=== PATIENT | male | born 1950 | race Two or more races ===

== ENCOUNTER → 2016-05-13 | Outpatient (CLI) | payer MEDICARE ==
--- NOTE | 2016-05-13 18:19 | MR ---
EXAMINATION TYPE: MR lumbar spine wo/w con DATE OF EXAM: 05/13/2016 5:50 PM COMPARISON: NONE HISTORY: LBP, radiates into back of both thighs TECHNIQUE: Multiplanar, multisequence images of the lumbar spine were acquired utilizing 15 mL intravenous Multi John gadolinium contrast. Correlation to prior lumbar MRI August L1-L2: Normal disc appearance without desiccation. No herniation, protrusion or disc bulging. No ca nal stenosis is present. Foramina are patent bilaterally. L2-L3: Some loss of disc signal is present. No significant central stenosis or foraminal encroachment . No disc herniation. L3-L4: Some loss of disc signal present. No disc herniation. No foraminal encroachment or central heather nosis. L4-L5: No significant disc herniation. There is loss of disc signal compatible with disc desiccation. Facet arthropathy with hypertrophy of the ligamentum flavum causes posterior lateral mass effect on the thecal sac. No significant foraminal encroachment. L5-S1: Loss of disc height and signal. No foraminal encroachment or significant central canal stenosi s. Facet arthropathy changes present. No evident disc herniation. Lumbar segments are intact. No paraspinal masses are identified. Conus medullaris has a normal appe arance. Minimal anterolisthesis grade 1 L4-5, there is multilevel spondylosis with endplate discogeni c marrow signal change as on prior exam. There is mild spinal curvature as on previous exam. No abnor mal enhancement following contrast administration. Paraspinal musculature shows some fatty replacemen t as on prior exam. IMPRESSION: Similar findings to prior exam. Mild degenerative disc disease. Multilevel facet arthropathy. Spinal curvature. Additional findings above. No significant canal stenosis or foraminal encroachment.
== END | disposition home or self-care (01) ==
LOC: RADMRIMAIN 16:49
PROVIDERS: ATTEND Internal Medicine
DX: M51.36 Other intervertebral disc degeneration, lumbar region (principal); M46.96 Unspecified inflammatory spondylopathy, lumbar region; M43.9 Deforming dorsopathy, unspecified
CPT/HCPCS: 72158; A9577

== ENCOUNTER 2021-07-11 23:25 | Emergency (ER) | payer MEDICARE ==
[2021-07-11 23:49] VITALS: TEMP 97.8
[2021-07-12] MEDS ORDERED: SODIUM CHLORIDE 0.9% 1,000 ML IV STA (00:04)
--- NOTE | 2021-07-12 00:06 | ED ---
Recheck HPI - General Chief Complaint: Recheck/Abnormal Lab/Rx Stated Complaint: Confusion Time Seen by Provider: 07/11/21 23:41 Source: patient, RN notes reviewed, old records reviewed Mode of arrival: ambulatory Limitations: no limitations - History of Present Illness Initial Comments: This is a 70-year-old male to the emergency department for evaluation. Patient presents to the ER today for evaluation of off-balance, history of from high blood pressure high cholesterol and pre-diabetes on metformin. Patient presents today for evaluation of dizziness, off-balance. This was noticed about 2 hours prior to arrival the patient was driving and was concerned of-year-old throat became incredibly nervous and noticed that the patient's blood pressure was significantly elevated he did take an extra blood pressure medication and now presents to the ER for evaluation. At this time patient has no specific complaints. Patient states his symptoms apparently resolved is able ambulate without difficulty. MD Complaint: other (Evaluation of episode of dizziness, off-balance) -: hour(s) (2) Returns Today for: other (none) Symptoms Since Prior Visit: no new symptoms Context: planned re-check Associated Symptoms: none Treatments Prior to Arrival: other medications, other (She did take blood or blood pressure medication) - Related Data Allergies Allergy/AdvReac Type Severity Reaction Status Date / Time No Known Allergies Allergy Verified 07/11/21 23:44 Review of Systems ROS Statement: Those systems with pertinent positive or pertinent negative responses have been documented in the HPI. ROS Other: All systems not noted in ROS Statement are negative. Past Medical History Past Medical History: Diabetes Mellitus, GERD/Reflux, Hypertension History of Any Multi-Drug Resistant Organisms: None Reported Past Surgical History: No Surgical Hx Reported Past Psychological History: No Psychological Hx Reported Smoking Status: Never smoker Past Alcohol Use History: Occasional Past Drug Use History: None Reported General Exam - General Exam Comments Initial Comments: NIH of 0 No focal neurological deficit Little nystagmus to the right Finger-nose is a little bit off right hand Limitations: no limitations General appearance: alert, in no apparent distress Head exam: Present: atraumatic, normocephalic, normal inspection Eye exam: Present: normal appearance, PERRL, EOMI. Absent: scleral icterus, conjunctival injection, periorbital swelling ENT exam: Present: normal exam, mucous membranes moist Neck exam: Present: normal inspection. Absent: tenderness, meningismus, lymphadenopathy Respiratory exam: Present: normal lung sounds bilaterally. Absent: respiratory distress, wheezes, rales, rhonchi, stridor Cardiovascular Exam: Present: regular rate, normal rhythm, normal heart sounds. Absent: systolic murmur, diastolic murmur, rubs, gallop, clicks GI/Abdominal exam: Present: soft, normal bowel sounds. Absent: distended, tenderness, guarding, rebound, rigid Extremities exam: Present: normal inspection, full ROM, normal capillary refill. Absent: tenderness, pedal edema, joint swelling, calf tenderness Back exam: Present: normal inspection Neurological exam: Present: alert, oriented X3, CN II-XII intact Psychiatric exam: Present: normal affect, normal mood Skin exam: Present: warm, dry, intact, normal color. Absent: rash Course Vital Signs 07/11/21 07/12/21 07/12/21 23:44 00:18 00:40 Temperature 97.8 F Pulse Rate 76 70 71 Respiratory 20 18 18 Rate Blood Pressure 180/98 145/86 159/98 O2 Sat by Pulse 96 97 97 Oximetry 07/12/21 01:17 Temperature Pulse Rate 74 Respiratory 18 Rate Blood Pressure 149/89 O2 Sat by Pulse 98 Oximetry - Reevaluation(s) Reevaluation #1: 07/12/21 Medical record is reviewed Code stroke paged on patient arrival Reevaluation #2: 07/12/21 Patient informed results and questions answered Reevaluation #3: 07/12/21 Patient feels good for discharge home follow-up with neurology Remains asymptomatic with no neurological deficit Medical Decision Making - Medical Decision Making 70 male DF for evaluation of TIA versus vertiginous symptom. Patient is n egative CT brain CTA had neck, blood pressure is normal. He will Return to taking aspirin and prefers discharge at this time - Lab Data Result diagrams: 07/12/21 00:11 07/12/21 00:11 Lab Results 07/12/21 07/12/21 07/12/21 Range/Units 00:11 00:11 00:11 WBC 7.4 (3.8-10.6) k/uL RBC 4.93 (4.30-5.90) m/uL Hgb 14.9 (13.0-17.5) gm/dL Hct 46.8 (39.0-53.0) % MCV 94.9 (80.0-100.0) fL MCH 30.2 (25.0-35.0) pg MCHC 31.8 (31.0-37.0) g/dL RDW 12.9 (11.5-15.5) % Plt Count 294 (150-450) k/uL MPV 7.4 Neutrophils % 62 % Lymphocytes % 29 % Monocytes % 5 % Eosinophils % 2 % Basophils % 0 % Neutrophils # 4.6 (1.3-7.7) k/uL Lymphocytes # 2.2 (1.0-4.8) k/uL Monocytes # 0.4 (0-1.0) k/uL Eosinophils # 0.1 (0-0.7) k/uL Basophils # 0.0 (0-0.2) k/uL PT 10.8 (9.0-12.0) sec INR 1.0 (<1.2) APTT 23.8 (22.0-30.0) sec Sodium 141 (137-145) mmol/L Potassium 4.5 (3.5-5.1) mmol/L Chloride 106 (98-107) mmol/L Carbon Dioxide 28 (22-30) mmol/L Anion Gap 7 mmol/L BUN 20 (9-20) mg/dL Creatinine 0.85 (0.66-1.25) mg/dL Est GFR (CKD-EPI)AfAm >90 (>60 ml/min/1.73 sqM) Est GFR (CKD-EPI)NonAf 88 (>60 ml/min/1.73 sqM) Glucose 133 H (74-99) mg/dL Calcium 9.9 (8.4-10.2) mg/dL Total Bilirubin 0.5 (0.2-1.3) mg/dL AST 29 (17-59) U/L ALT 23 (4-49) U/L Alkaline Phosphatase 59 (38-126) U/L Troponin I (0.000-0.034) ng/mL Total Protein 7.1 (6.3-8.2) g/dL Albumin 4.3 (3.5-5.0) g/dL 07/12/21 Range/Units 00:11 WBC (3.8-10.6) k/uL RBC (4.30-5.90) m/uL Hgb (13.0-17.5) gm/dL Hct (39.0-53.0) % MCV (80.0-100.0) fL MCH (25.0-35.0) pg MCHC (31.0-37.0) g/dL RDW (11.5-15.5) % Plt Count (150-450) k/uL MPV Neutrophils % % Lymphocytes % % Monocytes % % Eosinophils % % Basophils % % Neutrophils # (1.3-7.7) k/uL Lymphocytes # (1.0-4.8) k/uL Monocytes # (0-1.0) k/uL Eosinophils # (0-0.7) k/uL Basophils # (0-0.2) k/uL PT (9.0-12.0) sec INR (<1.2) APTT (22.0-30.0) sec Sodium (137-145) mmol/L Potassium (3.5-5.1) mmol/L Chloride (98-107) mmol/L Carbon Dioxide (22-30) mmol/L Anion Gap mmol/L BUN (9-20) mg/dL Creatinine (0.66-1.25) mg/dL Est GFR (CKD-EPI)AfAm (>60 ml/min/1.73 sqM) Est GFR (CKD-EPI)NonAf (>60 ml/min/1.73 sqM) Glucose (74-99) mg/dL Calcium (8.4-10.2) mg/dL Total Bilirubin (0.2-1.3) mg/dL AST (17-59) U/L ALT (4-49) U/L Alkaline Phosphatase (38-126) U/L Troponin I <0.012 (0.000-0.034) ng/mL Total Protein (6.3-8.2) g/dL Albumin (3.5-5.0) g/dL - EKG Data -: EKG Interpreted by Me (EKG shows sinus rhythm 67 WI 136 QRS 92 QTc 359) - Radiology Data Radiology results: report reviewed (CT rain CT head neck negative for acute disease), image reviewed Disposition Clinical Impression: Transient cerebral ischemia, Vertigo Disposition: HOME SELF-CARE Condition: Good Instructions (If sedation given, give patient instructions): Transient Ischemic Attack (ED), Vertigo (ED) Is patient prescribed a controlled substance at d/c from ED?: No Referrals: Nonstaff,Physician [Primary Care Provider] - 1-2 days
[2021-07-12 00:18] LABS: Basophils % (A) 0 %; Eosinophils # (A) 0.1 k/uL (0-0.7); Eosinophils % (A) 2 %; HCT 46.8 % (39.0-53.0); HGB 14.9 gm/dL (13.0-17.5); Lymphocytes # (A) 2.2 k/uL (1.0-4.8); Lymphocytes % (A) 29 %; MCH 30.2 pg (25.0-35.0); MCHC 31.8 g/dL (31.0-37.0); MCV 94.9 fL (80.0-100.0); Mean Platelet Volume 7.4; Monocytes # (A) 0.4 k/uL (0-1.0); Monocytes % (A) 5 %; Neutrophils # (A) 4.6 k/uL (1.3-7.7); Neutrophils % (A) 62 %; Platelet Count 294 k/uL (150-450); RBC 4.93 m/uL (4.30-5.90); RDW 12.9 % (11.5-15.5); WBC 7.4 k/uL (3.8-10.6)
[2021-07-12 00:19] VITALS: RESP 18
[2021-07-12 00:27] LABS: Partial Thromboplastin Time 23.8 sec (22.0-30.0); Prothrombin Time 10.8 sec (9.0-12.0)
[2021-07-12 00:30] LABS: ALT 23 U/L (4-49); AST 29 U/L (17-59); African American GFR (CKD) >90 (>60 ml/min/1.73 sqM); Albumin 4.3 g/dL (3.5-5.0); Alkaline Phosphatase 59 U/L (38-126); Anion Gap 7 mmol/L; Blood Urea Nitrogen 20 mg/dL (9-20); Calcium 9.9 mg/dL (8.4-10.2); Carbon Dioxide 28 mmol/L (22-30); Chloride 106 mmol/L (98-107); Glucose 133 mg/dL (74-99); Non-African American GFR(CKD) 88 (>60 ml/min/1.73 sqM); Potassium 4.5 mmol/L (3.5-5.1); Sodium 141 mmol/L (137-145); Total Bilirubin 0.5 mg/dL (0.2-1.3); Total Protein 7.1 g/dL (6.3-8.2)
--- NOTE | 2021-07-12 00:43 | XR ---
EXAMINATION TYPE: XR chest 1V DATE OF EXAM: 07/12/2021 COMPARISON: NONE HISTORY: Neuro deficit. Weakness. TECHNIQUE: Single view FINDINGS: There is no heart failure nor confluent pneumonic infiltrate. Costophrenic angles are clear . There are chest leads. There is spurring in the thoracic spine. IMPRESSION: No active cardiopulmonary disease. Normal heart.
--- NOTE | 2021-07-12 00:46 | CT ---
EXAMINATION TYPE: CT brain wo con for TPA DATE OF EXAM: 07/12/2021 COMPARISON: None HISTORY: Neuro deficit, acute, stroke suspected CT DLP: 1588.3 mGycm Automated exposure control for dose reduction was used. Images of the brain obtained without contrast. There is cerebral atrophy. There is no mass effect or midline shift. There is no sign of intracranial hemorrhage. The calvarium is intact. There is normal aeration of the mastoid sinuses. Skull base is intact. IMPRESSION: Cerebral atrophy. No acute intracranial abnormality.
--- NOTE | 2021-07-12 00:50 | CT ---
EXAMINATION TYPE: CT angio head neck DATE OF EXAM: 07/12/2021 COMPARISON: None HISTORY: Neuro deficit, acute, stroke suspected CT DLP: 1588.3 mGycm Automated exposure control for dose reduction was used. CONTRAST: Performed with IV Contrast, patient injected with 65 mL of Isovue 300. Images obtained from the aortic arch to the vertex of the brain with IV contrast. There are Three-D p ostprocessed images. There is normal branching pattern of the great vessels on the aortic arch. There is bilateral arteria l flow in the subclavian arteries. There is arterial flow in the common internal and external carotid arteries bilaterally. There is wide patency of the carotid artery bifurcations. There is some tortuo sity of the right internal carotid artery. There is no evidence of carotid or vertebral artery aneury sm or dissection. There is arterial flow in both vertebral arteries. There is arterial flow in the ve rtebral basilar artery system. There is arterial flow in the anterior middle and posterior cerebral arteries bilaterally. No evidenc e of intracranial aneurysm or neovascularity. No mass effect. No evidence of hemodynamic arterial heather nosis. There is normal enhancement of the venous sinuses. No evidence of any significant flow in the posterior communicating arteries. IMPRESSION: Negative CT angiogram of the neck. Negative CT angiogram of the brain. No evidence of any significant hemodynamic arterial stenosis.
[2021-07-12 01:18] VITALS: BP 149/89; PULSE 74
== END 2021-07-12 01:18 | disposition home or self-care (01) ==
LOC: EC 23:25
DX: G45.9 Transient cerebral ischemic attack, unspecified (principal); R42 Dizziness and giddiness; E11.9 Type 2 diabetes mellitus without complications; K21.9 Gastro-esophageal reflux disease without esophagitis; I10 Essential (primary) hypertension
CPT/HCPCS: 99284; 96360; 36415; 93005; 80053; 84484; 85025; 85610; 85730; 71045; 70496; 70450; 70498; Q9967